=== PATIENT | female | born 1980 | race Caucasian/White ===

== ENCOUNTER 2020-05-01 14:03 | Inpatient (IN) | payer OTHER ==
[2020-05-01] VITALS (16 sets, daily range): BP systolic 129–270; BP diastolic 69–174
[~2020-05-01] VITALS: Ht 154.9 cm; Wt 88.9 kg
--- NOTE | ~2020-05-01 | PROC ---
[address] [address] PROCEDURE REPORT Name: TAMELA QUEZADA Room: [address] IN .#: [id number] Admission: 05/01/20 Attend Phys: Faraz Infante MD Discharge: Date of : 84 Report #: [id number] THIS REPORT FOR: cc: [facility] - Clinic physician unknown [facility] - Clinic physician unknown ~ [facility],Medical Records Staff For GI report, please see the Provation report in Perceptive 7 content. By: 1410Medical Records Staff ROHINI /LISA
[2020-05-01] MEDS ORDERED: ZOLOFT50 M1 PO ×2 (14:17)
[2020-05-01 14:22] LABS: URINE BILIRUBIN NEGATIVE (Negative); URINE BLOOD 2+ (Negative); URINE CLARITY CLEAR; URINE COLOR YELLOW; URINE GLUCOSE-RANDOM NEGATIVE (Negative); URINE KETONES NEGATIVE (Negative); URINE LEUKOCYTES-REFLEX NEGATIVE (Negative); URINE NITRITE-REFLEX NEGATIVE (Negative); URINE PROTEIN 3+ (Negative); URINE SPECIFIC GRAVITY >= 1.030 (1.005-1.030)
[2020-05-01 14:30] LABS: AMP/METHAMP Negative (Negative); BARBITURATES Negative (Negative); BENZODIAZEPINES Negative (Negative); COCAINE Negative (Negative); METHADONE Negative (Negative); OPIATES Negative (Negative); PCP Negative (Negative); THC Negative (Negative)
[2020-05-01 14:36] LABS: SQUAMOUS >10 Many /LPF (0-3); URINE WBC-REFLEX None Seen /HPF (0-5)
[2020-05-01 14:37] LABS: BACTERIA-REFLEX >30 Many /HPF (None Seen); HYALINE CASTS 0-3 Few /LPF (None Seen); MUCUS 0-3 Light strn/LPF (None Seen); URINE RBC 3-10 Few /HPF (0-2)
[2020-05-01 14:38] LABS: CRYSTALS None Seen /LPF (None Seen)
[2020-05-01 14:59] LABS: HEMATOCRIT 25.9 % (37.0-47.0); HEMOGLOBIN 7.7 gm/dL (12.0-15.0); MCH 21.1 pg (26.0-34.0); MCHC 29.6 g/dL (28.0-37.0); MCV 71.3 fL (80.0-100.0); MPV 7.6 fl. (7.2-11.1); NUCLEATED RBCS 0 /100WBC; PLATELET COUNT* 378 thou/uL (150-400); RBC 3.63 mil/uL (4.20-5.00); RDW-CV 20.5 % (10.5-14.5); WBC 13.5 thou/uL (4.0-11.0)
[2020-05-01 15:10] LABS: APTT 23.4 Seconds (25.0-31.3); INR 1.1; PROTIME 11.9 Seconds (9.20-11.50)
[2020-05-01 15:15] LABS: CALCIUM 8.8 mg/dL (8.5-10.1); CREATININE 2.8 mg/dL (0.6-1.3); POTASSIUM 3.2 mmol/L (3.5-5.1)
[2020-05-01 15:25] LABS: ABSOLUTE EOSINOPHILS 0.1 thou/uL (0.0-0.7); ABSOLUTE LYMPHOCYTES 0.5 thou/uL (0.8-5.3); ABSOLUTE MONOCYTES 1.2 thou/uL (0.0-1.2); ABSOLUTE NEUTROPHILS 11.6 thou/uL (1.6-8.1)
[2020-05-01 15:26] LABS: ALBUMIN 2.4 g/dL (3.4-5.0); HYPOCHROMASIA 2+; PLATELET ESTIMATE ADEQUATE; POLYCHROMASIA Occasional; TOTAL BILIRUBIN 1.6 mg/dL (<0.1-1.0); TOTAL PROTEIN 6.8 g/dL (6.4-8.2)
[2020-05-01 15:28] LABS: ANISOCYTOSIS 2+; MICROCYTES 2+
[2020-05-01 19:30] LABS: URINE POTASSIUM-RANDOM 41.5 mmol/L
[2020-05-02] VITALS (41 sets, daily range): BP systolic 126–182; BP diastolic 68–146
[2020-05-02 05:49] LABS: ABSOLUTE LYMPHOCYTES 0.7 thou/uL (0.8-5.3); ABSOLUTE MONOCYTES 1.1 thou/uL (0.0-1.2); ABSOLUTE NEUTROPHILS 12.8 thou/uL (1.6-8.1); BASOPHILS 0.3 %; EOSINOPHILS 0.3 %; HEMATOCRIT 24.1 % (37.0-47.0); HEMOGLOBIN 7.1 gm/dL (12.0-15.0); MCH 20.9 pg (26.0-34.0); MCHC 29.6 g/dL (28.0-37.0); MCV 70.7 fL (80.0-100.0); MONOCYTES 7.7 %; MPV 7.4 fl. (7.2-11.1); NUCLEATED RBCS 0 /100WBC; PLATELET COUNT* 358 thou/uL (150-400); POLYS 86.7 %; RBC 3.41 mil/uL (4.20-5.00); RDW-CV 20.4 % (10.5-14.5); WBC 14.7 thou/uL (4.0-11.0)
[2020-05-02 06:07] LABS: ALBUMIN 2.4 g/dL (3.4-5.0); CALCIUM 9.1 mg/dL (8.5-10.1); CREATININE 2.7 mg/dL (0.6-1.3); TOTAL BILIRUBIN 1.4 mg/dL (<0.1-1.0); TOTAL PROTEIN 6.6 g/dL (6.4-8.2)
[2020-05-02 06:20] LABS: POTASSIUM 2.8 mmol/L (3.5-5.1)
--- NOTE | 2020-05-02 09:56 | EKG ---
[place] [address] ELECTROCARDIOGRAM REPORT Name: TAMELA QUEZADA Room: [address] ADM IN [facility]#: [id number] Admission: 05/01/20 Attend Phys: Faraz Infante, Discharge: Date of : 84 Date of Service: 05/01/20 1437 Report #: [id number] THIS REPORT FOR: //name// [facility] ED Test Date: 2020-05-01 Test Time: 14:37:39 Pat Name: TAMELA FALL Department: Room: [facility] Gender: F Phlebotomy Tech: SENIA : 1980 Requested By: Oscar Gaona Order Number: [id number] MD: Roberto Kennedy Measurements Intervals [place] Rate: 109 P: 48 NV: 164 QRS: 29 QRSD: 78 T: 222 QT: 300 QTc: 405 Interpretive Statements Sinus tachycardia Probable left atrial enlargement Probable LVH with secondary repol abnrm No previous ECG available for comparison Electronically Signed On 05-02-2020 9:56:32 CDT by Roberto Kennedy [email or web address] <ELECTRONICALLY SIGNED> By: Roberto Kennedy MD, FAC 05/02/20 0956 1437 1437 Roberto Kennedy MD, [facility] /EPI
[2020-05-02 13:08] LABS: COMPLEMENT-C4 14 mg/dL (12-38)
--- NOTE | 2020-05-02 17:43 | 2DMMODE ---
[place] [address] 2 D/M-MODE ECHOCARDIOGRAM Name: YEUNG TAMELA FALL Room: [address] IN [facility]#: [id number] Admission: 05/01/20 Attend Phys: Faraz Infante, Discharge: Date of : 84 Date of Service: 05/02/20 1743 Report #: [id number] THIS REPORT FOR: cc: [facility] - Clinic physician unknown [facility] physician unknown Obed Louis MD [facility] ~ APPROVED REPORT Study performed: 05/02/2020 09:51:44 EXAM: Comprehensive 2D, Doppler, and color-flow Echocardiogram Patient Location: In-Patient Room #: [facility] Status: routine BSA: 2.00 HR: 94 bpm BP: 151/86 mmHg Rhythm: NSR Other Information Study Quality: Good Indications Elevated Troponin Echo Enhancing Agent Indication: Rule out Shunt Agent(s) / Amount(s) Used: Agitated Saline 10 cc 2D Dimensions IVSd: 14.43 (7-11mm) LVOT Diam: 19.42 (18-24mm) LVDd: 41.50 mm PWd: 13.26 (7-11mm) Ascending Ao: 31.63 (22-36mm) LVDs: 27.59 (25-40mm) Aortic Root: 27.73 mm Volumes Left Atrial Volume (Systole) LA ESV Index: 62.10 mL/m2 Aortic Valve AoV Peak Otis.: 1.73 m/s AO Peak Gr.: 11.96 mmHg LVOT Max P.92 mmHg AO Mean Gr.: 6.51 mmHg LVOT Mean P[place]06 [place] [address] 2 D/M-MODE ECHOCARDIOGRAM Name: TAMELA QUEZADA Room: [address]#: [id number] Admission: 05/01/20 Attend Phys: Faraz Infante, Discharge: Date of : 84 Date of Service: 05/02/20 1743 Report #: [id number] LVOT Max V: 1.49 m/s AO V2 VTI: 24.36 cm LVOT Mean V: 0.92 m/s YUMI (VTI): 2.59 cm2 LVOT V1 VTI: 21.28 cm Mitral Valve E/A Ratio: 2.76 MV Decel. Time: 179.77 ms MV E Max Otis.: 1.45 m/s MV PHT: 52.13 ms MVA (PHT): 4.22 cm2 TDI E/Lateral E': 16.11 E/Medial E': 14.50 Medial E' Otis.: 0.10 m/s Lateral E' Otis.: 0.09 m/s Pulmonary Valve PV Peak Otis.: 1.16 m/s PV Peak Gr.: 5.39 mmHg Tricuspid Valve RAP Estimate: 5.00 mmHg TR Peak Gr.: 34.13 mmHg RVSP: 39.00 mmHg PA Pressure: 39.00 mmHg Left Ventricle The left ventricle is normal size. There is normal LV segmental wall motion. Moderate concentric left ventricular hypertrophy. Left ventricular systolic function is normal. LVEF is 60-65%. Severe diastolic dysfunction is present (restrictive filling). The left ventricular diastolic function is normal. Right Ventricle The right ventricle is normal size. The right ventricular systolic function is normal. Atria Left atrium is severely dilated. The atrial septum is aneurysmal. The interatrial septum is intact with no evidence for an atrial septal defect. Right atrium is dilated. Aortic Valve The aortic valve is normal in structure. No aortic regurgitation is present. There is no aortic valvular stenosis. Mitral Valve The mitral valve is normal in structure. [place] [address] 2 D/M-MODE ECHOCARDIOGRAM Name: YEUNG EUFEMIATAMELA Aguilera Room: [address] IN M.R.#: [id number] Admission: 05/01/20 Attend Phys: Faraz Infante, Discharge: Date of : 84 Date of Service: 05/02/20 1743 Report #: [id number] No evidence of mitral valve stenosis. Tricuspid Valve The tricuspid valve is normal in structure. Mild tricuspid regurgitation. Mild pulmonary hypertension. Pulmonic Valve The pulmonary valve is normal in structure. Mild pulmonic regurgitation. Great Vessels The aortic root is normal in size. IVC is normal in size and collapses >50% with inspiration. Pericardium There is no pericardial effusion. <Conclusion> The left ventricle is normal size. Moderate concentric left ventricular hypertrophy. Left ventricular systolic function is normal. LVEF is 60-65%. Severe diastolic dysfunction is present (restrictive filling). The atrial septum is aneurysmal. The interatrial septum is intact with no evidence for an atrial septal defect. Trace mitral regurgitation. Mild tricuspid regurgitation. Mild pulmonary hypertension. IVC is normal in size and collapses >50% with inspiration. <ELECTRONICALLY SIGNED> By: Obed Louis MD, FACC 05/02/20 [phone] Obed Louis MD, FACC /INF
[2020-05-02 22:06] LABS: GLYCOHEMOGLOBIN (HGB A1C) 6.4 % (4.8-5.6)
[2020-05-03 00:10] VITALS: BP 133/81
[2020-05-03 04:08] VITALS: BP 123/71
[2020-05-03 04:59] LABS: MCHC 29.6 g/dL (28.0-37.0); MCV 70.9 fL (80.0-100.0); MPV 8.2 fl. (7.2-11.1); RBC 3.25 mil/uL (4.20-5.00); WBC 11.3 thou/uL (4.0-11.0)
[2020-05-03 05:13] LABS: HEMOGLOBIN 6.8 gm/dL (12.0-15.0)
[2020-05-03 05:24] LABS: ALBUMIN 2.2 g/dL (3.4-5.0); CALCIUM 8.7 mg/dL (8.5-10.1); CREATININE 3.2 mg/dL (0.6-1.3); DIRECT BILIRUBIN 0.4 mg/dL (<0.1-0.3); POTASSIUM 3.8 mmol/L (3.5-5.1); TOTAL BILIRUBIN 1.3 mg/dL (<0.1-1.0); TOTAL PROTEIN 6.2 g/dL (6.4-8.2)
[2020-05-03 08:09] VITALS: BP 139/83
--- NOTE | 2020-05-03 10:24 | CON ---
[address] [address] CONSULTATION Name: TAMELA QUEZADA Willy Room: [address] IN .R.#: [id number] Admission: 05/01/20 Attend Phys: Faraz Infante MD Discharge: Date of : 84 Report #: [id number] THIS REPORT FOR: cc: [facility] - Clinic physician unknown [facility] - Clinic physician unknown ~ Sarath Carlos MD DATE OF SERVICE: 05/02/2020 REQUESTING PHYSICIAN: Faraz Infante MD REASON FOR CONSULTATION: Hypertension, proteinuria and abnormal renal function. HISTORY OF PRESENT ILLNESS: The patient is a very pleasant 39-year-old female past medical history is significant for obesity and depression. She was on no medications except for Zoloft. She presents with chief complaints of being very weak, not feeling well. She saw her primary care doctor a week ago and at that time, she was found to be anemic with hemoglobin 7.7. Her creatinine was 2.79. Her bilirubin was 2.8, AST 215, ALT 239. This is actually the first time she had blood work done over the last several years. She also was found to be very hypertensive. Blood pressure was 230/110. She was admitted to Intensive Care Unit and started on Cardene drip and I was consulted. PAST MEDICAL HISTORY: As I mentioned earlier. SOCIAL HISTORY: No tobacco, no alcohol abuse. She is . FAMILY HISTORY: Strongly positive for hypertension in both parents. MEDICATIONS: Prior to admission Zoloft. REVIEW OF SYSTEMS: As I mentioned earlier. PHYSICAL EXAMINATION: GENERAL: Awake, alert, and oriented. VITAL SIGNS: Blood pressure now 150/86, heart rate 92, afebrile. HEENT: Pupils are round. NECK: Fatty. LUNGS: Clear. CARDIOVASCULAR: Regular rate, tachycardia. ABDOMEN: Obese, soft. LOWER EXTREMITIES: With 2+ edema. LABORATORY DATA: Report revealed white count of 14.7, hemoglobin 7.1, platelet count 358. Serum sodium 141, potassium 2.8, chloride 100, carbon dioxide 27, [place] [address] CONSULTATION Name: TAMELA QUEZADA Room: [address]#: [id number] Admission: 05/01/20 Attend Phys: Faraz Infante MD Discharge: Date of : 84 Report #: [id number] BUN 52, creatinine 2.7, alkaline phosphatase 148, AST 36, ALT 76. ____ 66, albumin 2.4, total protein 6.6. Serologies were ordered, pending. ASSESSMENT: 1. Malignant hypertension. 2. Acute kidney injury versus chronic kidney disease. 3. Proteinuria. Urine shows 3+ protein. 4. Obesity. 5. Edema. Diff diagnosis would be malignant hypertension and caused damage to her kidneys including some proteinuria or some glomerulopathy ____, to diagnose that we will have to await results of the serologies and most likely do renal biopsy. PLAN: Admit time. In the meantime to control of blood pressure we put her on low protein diet, replace her potassium, and await the results of the serological workup and again, we may need to do biopsy. She had abdominal CT scan done, did not reveal any abnormalities in her kidneys or adrenals. We may have to do some workup for possible pheochromocytoma. <ELECTRONICALLY SIGNED> By: Sarath Carlos MD 05/03/20 1024 1137 1334Alextravis Carlos MD /nt
[2020-05-03 11:07] VITALS: BP 106/77; BP 118/70; BP 130/81; BP 131/61; BP 163/69
[2020-05-03 11:07] LABS: ANTI-DNA SCREEN 2 IU/mL (0-9); ANTI-RNP 0.5 AI (0.0-0.9); ANTI-SSA <0.2 AI (0.0-0.9); ANTIJO-I AB <0.2 AI (0.0-0.9)
[2020-05-03 16:00] VITALS: BP 129/76
[2020-05-03 16:27] LABS: HEMATOCRIT 26.9 % (37.0-47.0); HEMOGLOBIN 8.1 gm/dL (12.0-15.0)
--- NOTE | 2020-05-03 17:31 | CON ---
[address] [address] CONSULTATION Name: TAMELA QUEZADA Willy Room: [address] IN .R.#: [id number] Admission: 05/01/20 Attend Phys: Faraz Infante MD Discharge: Date of : 84 Report #: [id number] THIS REPORT FOR: cc: [facility] - Clinic physician unknown [facility] - Clinic physician unknown ~ Obed Louis MD [facility] CARDIOLOGY CONSULT INDICATION: Elevated troponin and hypertension. HISTORY OF PRESENT ILLNESS: The patient is a 39-year-old white female admitted to the hospital with acute renal failure and hypertensive emergency. The patient was placed on a nicardipine drip with significant improvement in her blood pressure. She denies any history of hypertension prior to this episode. In this setting, she was noted to have an elevated troponin and BNP, likely due to acute renal failure. She denies specifically any chest pain, tightness or pressure. She is not having any significant shortness of breath, dyspnea on exertion, orthopnea. She was also found to be profoundly anemic with the hemoglobin of 7.7. She does report fatigue over the last 6 weeks, but is without other specific complaint. PAST MEDICAL HISTORY: None. CURRENT MEDICATIONS: Zoloft 50 mg daily. ALLERGIES: None. SOCIAL HISTORY: The patient drinks rarely. She does not smoke. She does not use illicit drugs. She is . Her is in attendance with her. REVIEW OF SYSTEMS: The patient has symptoms as outlined above. Otherwise, 14-point review of systems unremarkable. PHYSICAL EXAMINATION: VITAL SIGNS: Blood pressure 161/86, pulse is 95 and regular. GENERAL: This is a pleasant young lady who is in no distress. Mood and affect appropriate. HEENT: The patient is wearing glasses. Extraocular muscles intact. Mucous membranes are moist. NECK: Shows no jugular venous distention. There are no carotid bruits. CHEST: Reveals clear lung holguin. I do not appreciate wheezes, rales or rhonchi. CARDIOVASCULAR: Reveals a regular rhythm without gallop or murmur. ABDOMEN: Reveals normal bowel sounds. The abdomen is soft, nontender. EXTREMITIES: [place] [address] CONSULTATION Name: TAMELA QUEZADA Willy Room: [address]#: [id number] Admission: 05/01/20 Attend Phys: Faraz Infante MD Discharge: Date of : 84 Report #: [id number] SKIN: Warm and dry. LABORATORY DATA: Labs are reviewed. White blood cell count 14.7, hemoglobin 7.1, MCV 70.7, platelet count 358,000. Sodium 141, potassium 2.8, chloride 100, bicarbonate 27, BUN 52, creatinine 2.7, serum glucose 151, AST 36, total bilirubin 1.4, calcium 9.1, alkaline phosphatase 148, ALT 76, total protein 6.6, albumin 2.4, total LDH 366. CPK 129. Troponin 0.21. Her NT-proBNP 22,928. Chest x-ray: Mild cardiomegaly without acute abnormality. IMPRESSION AND RECOMMENDATIONS: 1. Elevated troponin with no symptoms to suggest acute coronary syndrome. I suspect this is due to acute renal failure. An echocardiogram has been ordered and is pending. No further cardiac evaluation at this time. A 12-lead EKG showed sinus rhythm without acute ST abnormality. 2. Hypertension. We will add oral carvedilol and attempt to wean Cardene drip as tolerated. 3. Acute renal failure per Nephrology. 4. Microcytic anemia. Etiology not clear at this point in time. <ELECTRONICALLY SIGNED> By: Obed Louis MD, FACC 05/03/20 1731 1205 [id number] Autumn Louis MD, FACC /nt
[2020-05-03 20:00] VITALS: BP 150/91
[2020-05-04] VITALS (7 sets, daily range): BP systolic 149–188; BP diastolic 88–111
[2020-05-04 02:06] LABS: URINE PROTEIN 985 mg/24 hr (30-150); URINE PROTEIN (MG/DL) 140.7 mg/dL (Not Estab.)
[2020-05-04 04:37] LABS: HEMATOCRIT 28.2 % (37.0-47.0); HEMOGLOBIN 8.4 gm/dL (12.0-15.0); MCH 21.8 pg (26.0-34.0); MCHC 29.7 g/dL (28.0-37.0); MCV 73.6 fL (80.0-100.0); MPV 8.2 fl. (7.2-11.1); RBC 3.84 mil/uL (4.20-5.00); RDW-CV 22.1 % (10.5-14.5); WBC 12.9 thou/uL (4.0-11.0)
[2020-05-04 05:02] LABS: ALBUMIN 2.4 g/dL (3.4-5.0); CALCIUM 9.1 mg/dL (8.5-10.1); CREATININE 3.3 mg/dL (0.6-1.3); MAGNESIUM 2.6 mg/dL (1.8-2.4); POTASSIUM 3.2 mmol/L (3.5-5.1); TOTAL BILIRUBIN 1.2 mg/dL (<0.1-1.0); TOTAL PROTEIN 6.6 g/dL (6.4-8.2); TROPONIN-I LEVEL 0.55 ng/mL (<0.06)
[2020-05-05] VITALS (7 sets, daily range): BP systolic 154–224; BP diastolic 89–129
[2020-05-05 02:06] LABS: IgA 331 mg/dL (87-352); IgG 804 mg/dL (586-1602); IgM 224 mg/dL (26-217)
[2020-05-05 05:40] LABS: HEMATOCRIT 27.3 % (37.0-47.0); HEMOGLOBIN 8.1 gm/dL (12.0-15.0); MCH 22.1 pg (26.0-34.0); MCHC 29.8 g/dL (28.0-37.0); MCV 74.1 fL (80.0-100.0); MPV 8.3 fl. (7.2-11.1); RBC 3.68 mil/uL (4.20-5.00); RDW-CV 22.8 % (10.5-14.5)
[2020-05-05 05:50] LABS: ALBUMIN 2.3 g/dL (3.4-5.0); CALCIUM 8.5 mg/dL (8.5-10.1); CREATININE 3.6 mg/dL (0.6-1.3); MAGNESIUM 2.5 mg/dL (1.8-2.4); POTASSIUM 3.1 mmol/L (3.5-5.1); TOTAL PROTEIN 6.5 g/dL (6.4-8.2)
[2020-05-06] VITALS (7 sets, daily range): BP systolic 148–187; BP diastolic 84–117
[2020-05-06 05:13] LABS: HEMOGLOBIN 8.1 gm/dL (12.0-15.0)
[2020-05-06 05:15] LABS: HEMATOCRIT 26.7 % (37.0-47.0); MCH 22.5 pg (26.0-34.0); MCHC 30.2 g/dL (28.0-37.0); MCV 74.4 fL (80.0-100.0); MPV 8.1 fl. (7.2-11.1); RBC 3.58 mil/uL (4.20-5.00); RDW-CV 22.9 % (10.5-14.5); WBC 13.9 thou/uL (4.0-11.0)
[2020-05-06 05:26] LABS: APTT 22.5 Seconds (25.0-31.3); PROTIME 11.1 Seconds (9.20-11.50)
[2020-05-06 05:39] LABS: ALBUMIN 2.2 g/dL (3.4-5.0); CALCIUM 8.2 mg/dL (8.5-10.1); CREATININE 3.4 mg/dL (0.6-1.3); TOTAL BILIRUBIN 0.9 mg/dL (<0.1-1.0); TOTAL PROTEIN 5.9 g/dL (6.4-8.2)
[2020-05-06 05:42] LABS: POTASSIUM 2.9 mmol/L (3.5-5.1)
[2020-05-06 17:06] LABS: GLIADIN IGA AB 48 units (0-19)
[2020-05-07] VITALS (8 sets, daily range): BP systolic 113–153; BP diastolic 70–91
[2020-05-07 04:13] LABS: HEMATOCRIT 27.4 % (37.0-47.0); HEMOGLOBIN 8.1 gm/dL (12.0-15.0); MCH 22.3 pg (26.0-34.0); MCHC 29.4 g/dL (28.0-37.0); MCV 75.9 fL (80.0-100.0); MPV 8.5 fl. (7.2-11.1); RBC 3.61 mil/uL (4.20-5.00); WBC 14.8 thou/uL (4.0-11.0)
[2020-05-07 04:39] LABS: CALCIUM 8.7 mg/dL (8.5-10.1); CREATININE 3.3 mg/dL (0.6-1.3); MAGNESIUM 2.5 mg/dL (1.8-2.4); POTASSIUM 3.5 mmol/L (3.5-5.1)
[2020-05-07 09:08] LABS: GLOMERULR BASEM MEMBRN AB 5 units (0-20)
--- NOTE | 2020-05-07 18:06 | PATH ---
[address] [address] PATHOLOGY RPT PROCEDURE Name: YEUNGERWIN FALLTAMELA Willy Room: [address] IN [facility]#: [id number] Admission: 05/01/20 Date of : 84 Discharge: Report #: [id number] Path Case #: [id number] [facility] Accession Number: [id number] . 01 Material submitted: . PART A: duodenum - DUODENAL BIOPSY PART B: colon - TRANSVERSE COLON POLYP. Modifiers: transverse PART C: colon - DESCENDING COLON POLYP. Modifiers: descending . 01 Clinical history: . A: BIOPSY FOR CELIAC ANEMIA EGD AND COLONOSCOPY HIATAL HERNIA, GRADE B ESOPHAGITIS, POSSIBLE CELIAC, DESCENDING COLON POLYP,TRANSVERSE COLON POLYP . 02 Diagnosis: A. Duodenal biopsy: - Benign duodenal mucosa with mild intraepithelial lymphocytosis and crypt hyperplasia, cannot rule out celiac disease. See comment. . B. Transverse colon polyp: - Tubular adenoma, negative for high-grade dysplasia. . C. Descending colon polyp: - Tubular adenoma, negative for high-grade dysplasia. (IRIS:pit 05/07/2020) QTP 05/07/2020 1600 Local . 02 Comment: Interpretation of the duodenal biopsy (A) is limited by the presence of prominent Nancy's glands in all five of the biopsy fragments such that it is not certain if several areas of villi appear flattened and possibly atrophic. There is also mild intraepithelial lymphocytosis and scattered crypt hyperplasia in association with a mild increase of lymphoplasmacytic infiltrate in the lamina propria, findings which are suggestive of early celiac disease. These findings are non-diagnostic for celiac disease and correlation with serology may be of use in clarifying. (IRIS:pit 05/07/2020) . 02 Electronically signed: . Lio Kramer MD, Pathologist NPI- [id number] . 01 Gross description: . A. The specimen is received in formalin, labeled "Tamela Fall, duodenal biopsy for celiac". Received are five segments of pale arrington tissue ranging in size from 0.3-0.4 cm [place] [address] PATHOLOGY RPT PROCEDURE Name: TAMELA QUEZADA Room: [address] IN ..#: [id number] Admission: 05/01/20 Date of : 84 Discharge: Report #: [id number] Path Case #: [id number] specimen is submitted entirely in cassette A1. . B. The specimen is received in formalin, labeled "Tamela Fall, transverse colon polyp". Received are two segments of pale arrington tissue measuring 0.3 and 0.5 cm in maximum dimensions. The specimen is submitted entirely in cassette B1. . C. The specimen is received in formalin, labeled "Tamela Fall, descending colon polyp". Received is a segment of pale arrington tissue measuring 0.5 cm in maximum dimensions. The specimen is submitted entirely in cassette C1. (CAA; 05/06/2020) QAC/QAC 05/06/2020 1602 Local . 02 Pathologist provided ICD-10: D12.3, D12.4, D64.9, Z12.11 . 02 CPT . 866518, 901408, 024812 Specimen Comment: A courtesy copy of this report has been sent to [phone] Specimen Comment: [id number] Specimen Comment: Report sent to ,DR DALY / DR VILLEDA Performed at: 01 [facility] [address] [facility] [address], [place], [place] [id number] MD Chico Philip MD Phone: [phone] Performed at: 02 [facility] [place] [address] [place] [id number] MD Lio Kramer MD Phone: [phone]
[2020-05-08 04:12] VITALS: BP 138/83
[2020-05-08 04:29] LABS: HEMATOCRIT 26.2 % (37.0-47.0); HEMOGLOBIN 7.8 gm/dL (12.0-15.0); MCH 22.4 pg (26.0-34.0); MCHC 29.9 g/dL (28.0-37.0); MPV 8.3 fl. (7.2-11.1); RBC 3.5 mil/uL (4.20-5.00); RDW-CV 23.2 % (10.5-14.5); WBC 13.9 thou/uL (4.0-11.0)
[2020-05-08 04:46] LABS: ALBUMIN 2.1 g/dL (3.4-5.0); CALCIUM 8.9 mg/dL (8.5-10.1); CREATININE 3.2 mg/dL (0.6-1.3); MAGNESIUM 2.2 mg/dL (1.8-2.4); POTASSIUM 3.4 mmol/L (3.5-5.1); TOTAL BILIRUBIN 0.8 mg/dL (<0.1-1.0); TOTAL PROTEIN 6.1 g/dL (6.4-8.2)
[2020-05-08 08:00] VITALS: BP 138/80
[2020-05-08] MEDS ORDERED: SPIRONOLACTONE25 MG PO ×2 (09:04)
[2020-05-08] MEDS ORDERED: PROCARDIA XL30 MG PO ×2 (09:04)
[2020-05-08] MEDS ORDERED: HYDRALAZINE 2525 MG PO ×2 (09:04)
[2020-05-08] MEDS ORDERED: CARVEDILOL25 MG PO ×2 (09:04)
[2020-05-08] MEDS ORDERED: FOLIC ACID1 MG PO ×2 (09:04)
[2020-05-08] MEDS ORDERED: PROTONIX40 M2 PO ×2 (09:14)
[2020-05-08 13:06] VITALS: BP 138/80
== END 2020-05-08 13:45 | disposition home or self-care (01) | DRG 291 ==
LOC: M.ERS 14:03 → M.TBA-ER 16:10 → M.ERS 16:10 → M.ICU 16:18 → M.TBA-ER 16:18 → M.2W 16:18 → M.ICU 18:28 → M.2W 05-02 19:04
PROVIDERS: Family Medicine; Internal Medicine; Internal Medicine Gastroenterology; Internal Medicine Nephrology; ADMIT Internal Medicine; ATTEND Internal Medicine
PROC: 02HV33Z Insertion of Infusion Device into Superior Vena Cava, Percutaneous Approach (ICD-10-PCS; 2020-05-01)
PROC: B548ZZA Ultrasonography of Superior Vena Cava, Guidance (ICD-10-PCS; 2020-05-01)
PROC: 30233N1 Transfusion of Nonautologous Red Blood Cells into Peripheral Vein, Percutaneous Approach (ICD-10-PCS; 2020-05-03)
PROC: 0DB98ZX Excision of Duodenum, Via Natural or Artificial Opening Endoscopic, Diagnostic (ICD-10-PCS; principal; 2020-05-04)
PROC: 0DBL8ZZ Excision of Transverse Colon, Via Natural or Artificial Opening Endoscopic (ICD-10-PCS; 2020-05-04)
PROC: 0DBM8ZZ Excision of Descending Colon, Via Natural or Artificial Opening Endoscopic (ICD-10-PCS; 2020-05-04)
DX: I11.0 Hypertensive heart disease with heart failure (principal); R65.11 Systemic inflammatory response syndrome (SIRS) of non-infectious origin with acute organ dysfunction; N17.9 Acute kidney failure, unspecified; I16.1 Hypertensive emergency; K21.00 Gastro-esophageal reflux disease with esophagitis, without bleeding; I50.33 Acute on chronic diastolic (congestive) heart failure; N05.9 Unspecified nephritic syndrome with unspecified morphologic changes; R31.9 Hematuria, unspecified; R80.9 Proteinuria, unspecified; G47.00 Insomnia, unspecified; E87.6 Hypokalemia; E66.9 Obesity, unspecified; D12.4 Benign neoplasm of descending colon; D12.3 Benign neoplasm of transverse colon; D50.9 Iron deficiency anemia, unspecified; K57.30 Diverticulosis of large intestine without perforation or abscess without bleeding; R73.9 Hyperglycemia, unspecified; K44.9 Diaphragmatic hernia without obstruction or gangrene; Z20.822 Contact with and (suspected) exposure to COVID-19; Z68.37 Body mass index [BMI] 37.0-37.9, adult; Z79.899 Other long term (current) drug therapy

== ENCOUNTER → 2020-05-09 | Outpatient (CLI) | payer OTHER ==
[~2020-05-09] MED LIST: CARVEDILOL25 MG PO; FOLIC ACID1 MG PO; HYDRALAZINE 2525 MG PO; PROCARDIA XL30 MG PO; PROTONIX40 M2 PO; SPIRONOLACTONE25 MG PO; ZOLOFT50 M1 PO
== END ==
LOC: M.MRI 08:46
PROVIDERS: ATTEND Internal Medicine
DX: N17.9 Acute kidney failure, unspecified (principal); I16.0 Hypertensive urgency

== ENCOUNTER → 2020-05-10 | Outpatient (CLI) | payer OTHER ==
[2020-05-10] VITALS (15 sets, daily range): BP systolic 108–129; BP diastolic 67–81
[~2020-05-10] VITALS: Ht 154.9 cm; Wt 103.4 kg
[2020-05-10 09:37] LABS: HEMATOCRIT 28.2 % (37.0-47.0); HEMOGLOBIN 8.5 gm/dL (12.0-15.0); MCH 22.9 pg (26.0-34.0); MCV 76.3 fL (80.0-100.0); MPV 7.9 fl. (7.2-11.1); RBC 3.7 mil/uL (4.20-5.00); RDW-CV 26.2 % (10.5-14.5); WBC 12.7 thou/uL (4.0-11.0)
[2020-05-10 09:43] LABS: CALCIUM 8.9 mg/dL (8.5-10.1); CREATININE 3.2 mg/dL (0.6-1.3); POTASSIUM 3.6 mmol/L (3.5-5.1)
[2020-05-10 09:50] LABS: INR 1.1; PROTIME 11.9 Seconds (9.20-11.50)
== END | disposition home or self-care (01) ==
LOC: M.ULTRA 08:25
PROVIDERS: Radiology Diagnostic Radiology; ATTEND Internal Medicine
DX: I13.0 Hypertensive heart and chronic kidney disease with heart failure and stage 1 through stage 4 chronic kidney disease, or unspecified chronic kidney disease (principal); I50.9 Heart failure, unspecified; N18.9 Chronic kidney disease, unspecified; D64.9 Anemia, unspecified; Z79.899 Other long term (current) drug therapy; Z98.890 Other specified postprocedural states